=== PATIENT | male | born 1945 | race African-American/Black ===

== ENCOUNTER 2023-05-20 07:28 | Emergency (ER) | payer MEDICARE ==
[~2023-05-20] VITALS: Ht 177.8 cm; Wt 80.0 kg
[2023-05-20 07:35] VITALS: BP 160/83; PULSE 103; RESP 20; O2SAT 100
[2023-05-20 07:45] VITALS: TEMP 98.7
[2023-05-20] MEDS ORDERED: ACETAMINOPHEN 325MG TABLET PO ONE (07:45)
[2023-05-20] MEDS ORDERED: TOPUD PO (09:00)
== END 2023-05-20 09:58 | disposition home or self-care (01) ==
LOC: ER 07:28
DX: S02.2XXA Fracture of nasal bones, initial encounter for closed fracture (principal); W19.XXXA Unspecified fall, initial encounter; Y93.89 Activity, other specified; Y92.89 Other specified places as the place of occurrence of the external cause; Y99.8 Other external cause status
CPT/HCPCS: 70486; 99284